=== PATIENT | male | born 1980 | race Caucasian/White ===

== ENCOUNTER 2021-04-21 17:55 | Emergency (ER) | payer SELFPAY ==
--- NOTE | 2021-04-21 18:12 | NUR ---
NO ANSWER X 1.
--- NOTE | 2021-04-21 18:21 | NUR ---
NO ANSWER X 2
--- NOTE | 2021-04-21 18:40 | NUR ---
NO ANSWER X 3, [employer] NOTIFIED.
== END 2021-04-21 18:47 ==
LOC: ED 18:15
DX: K08.89 Other specified disorders of teeth and supporting structures (principal); Z53.21 Procedure and treatment not carried out due to patient leaving prior to being seen by health care provider
CPT/HCPCS: 99281

== ENCOUNTER 2021-07-09 15:25 | Emergency (ER) | payer OTHER ==
[~2021-07-09] VITALS: Ht 182.9 cm; Wt 75.5 kg
[2021-07-09 15:41] VITALS: BP 116/56
== END 2021-07-09 15:59 | disposition home or self-care (01) ==
LOC: ED 15:40
DX: K04.7 Periapical abscess without sinus (principal)
CPT/HCPCS: 99283